=== PATIENT | male | born 1950 | race Caucasian/White ===

== ENCOUNTER 2017-01-04 08:34 | Inpatient (IN) ==
--- NOTE | 2017-01-03 21:17 | Discharge Summary ---
<Clover Mon Rudolph - Last Filed: 01/03/17 21:15> Date of Encounter: 01/03/17 - Discharge Diagnosis (1) Rotator cuff tear arthropathy of right shoulder Priority: Primary Status: Acute (2) Status post total replacement of right shoulder Priority: Primary Status: Acute - Discharge Medications Home Medications: OxyCODONE Immed Rel [Roxicodone 5 MG] 5 mg PO Q6HR PRN #28 tablet 01/03/17 [Rx] Tizanidine HCl 4 mg PO HS PRN 01/04/17 [History] Allergies/Adverse Reactions: 3 Allergy/AdvReac Type Severity Reaction Status Date / Time aspirin Allergy Hives Verified 01/04/17 09:19 Sulfa (Sulfonamide Allergy Hives Verified 01/04/17 09:19 Antibiotics) Primary care physician: Amy Crawford MD - Patient Status Disposition: Home, Self-Care Condition: Good - Discharge Instructions Follow Up With: Amy Crawford MD [Primary Care Provider] - - Hospital Course Hospital course: Mr. Juárez is a 66 year old male - Time Spent with Patient Total time spent providing and/or coordinating discharge services: <Jhonathan Garsiah - Last Filed: 01/04/17 13:44> Date of Encounter: 01/04/17 Time of Encounter: 13:44 - Discharge Diagnosis (1) Rotator cuff tear arthropathy of right shoulder Priority: Primary Status: Chronic (2) Status post total replacement of right shoulder Priority: Primary Status: Acute Primary care physician: Amy Crawford MD - Patient Status Functional capacity at discharge: independent ambulation Overall status at discharge: patient is progressing back to baseline - Hospital Course Hospital course: Mr. Juárez is a 66 year old male Status post right total shoulder replacement patient discharged home same day - Time Spent with Patient Total time spent providing and/or coordinating discharge services:
--- NOTE | 2017-01-04 08:51 | History & Physical Report ---
Date of Encounter: 01/04/17 Time of Encounter: 08:51 24 Hour HP Update - Instructions Instructions: If the History and Physical is less than 30 days old and was completed prior to A.M. admission and or procedure and has NOT been updated on calendar day of procedure please complete this update prior to performing procedure. - Update Patient reports changes in Medical Condition: No Changes in examination, assessment, or condition: No Changes in Medication: No Preop tests/diagnostics Reviewed: Yes - Pre-Operative Checklist Preoperative Checklist Indicated: No Prophylactic Antibiotic Ordered: Yes Is VTE Prophylaxis Indicated?: Yes
[2017-01-04] MEDS ORDERED: Lidocaine -MPF 1% 2 ML VIAL ID ONE (09:01)
[2017-01-04] MEDS ORDERED: CeFAZolin Pre 2,000 MG/100 ML 2,000 MG/100 ML BAG IVPB ONE (09:01)
[2017-01-04] MEDS ORDERED: Plasma-Lyte A (PH 7.4) 1,000 ML IVC SCH ×2 (09:15→11:15)
[2017-01-04] MEDS ORDERED: *HR* FentaNYL (PF) 100 MCG/2 ML VIAL ONE ×2 (09:33→10:01)
[2017-01-04] MEDS ORDERED: Lidocaine -MPF 2% 2 ML VIAL ONE ×2 (09:33→10:02)
[2017-01-04] MEDS ORDERED: ROPIVACAINE HCL/PF 0.5% 30 ML VIAL ONE (09:33)
[2017-01-04] MEDS ORDERED: *HR* Midazolam HCl 2 MG/2 ML VIAL ONE (09:34)
--- NOTE | 2017-01-04 09:36 | Anesthesia Evaluation PreOp ---
Date of Encounter: 01/04/17 Time of Encounter: 09:33 - Past History Planned Operation: Right Total Shoulder Pulmonary History: Denies Any Significant HX LIGHTER CAPTAIN History: Denies Any Significant HX Other Medical History: Denies Any Significant HX, Other (Gout) Anesthesia History: Past Anesthesia (Knee scopes x 3, Neck fusion, Lumbar spinal fusiion) Alcohol Use: occasionally Drug use: none Medications and Allergies OxyCODONE Immed Rel [Roxicodone 5 MG] 5 mg PO Q6HR PRN #28 tablet 01/03/17 [Rx] Tizanidine HCl 4 mg PO HS PRN 01/04/17 [History] 3 Allergy/AdvReac Type Severity Reaction Status Date / Time aspirin Allergy Hives Verified 01/04/17 09:19 Sulfa (Sulfonamide Allergy Hives Verified 01/04/17 09:19 Antibiotics) - Meds/Allergy Pre-op Review Medications Reviewed: Yes Allergies Reviewed: Yes Beta Blockers on Current Med List: No Anesthesia Results - Labs Laboratory Tests 12/18/16 12/18/16 12/18/16 17:37 17:37 17:37 WBC 9.4 Hgb 14.4 Hct 43.2 Plt Count 233 INR 1.0 Sodium 140 Potassium 4.3 Chloride 106 Carbon Dioxide 27 BUN 15 Creatinine 1.07 - Imaging EKG: image reviewed (SINUS RHYTHM WITH FIRST DEGREE AV BLOCK POSSIBLE LEFT ATRIAL ENLARGEMENT) Anesthesia Exam O2 Sat Height 1.78 m Height 1.78 m Weight 86.183 kg Weight 86.183 kg O2 Sat by Pulse Oximetry 99 O2 Sat by Pulse Oximetry 99 Vital Signs Temp Pulse Resp BP Pulse Ox 97.9 F 65 18 161/89 99 01/04/17 09:05 01/04/17 09:05 01/04/17 09:05 01/04/17 09:05 01/04/17 09:05 Height: 5'10'' Weight: 190# NPO (# of Hours): > 8 hrs Pain Scale: 0 Pain Scale Used: Numeric (1 - 10) - HEENT Pupil (Motor): Pupils equal, EOMI Mallampati: III Teeth: Normal Oral Opening: Greater than 3 - LIGHTER CAPTAIN LOC: Oriented LIGHTER CAPTAIN Motor: Normal RUE, Normal LUE, Normal RLE, Normal LLE, Normal Face LIGHTER CAPTAIN Sensory: Normal: RUE, LUE, RLE, LLE, Face - Cardiac Rhythm: Regular Murmur: None JVD: No Carotid Bruit: No - Pulmonary Breath Sounds: bilateral Clear Respiratory Effort: Symmetrical Anesthesia Assess/Plan ASA Score: 2 Modified Curt Scale for Level of Consciousness: Cooperative, oriented, and tranquil Anesthetic Plan: General, Regional (Right Brachial Plexus Block) Autologous Blood: Yes Monitoring Plan: Standard Monitors Recovery Plan: PACU
[2017-01-04] MEDS ORDERED: *HR* Propofol 200 MG/20 ML VIAL IVP ONE (10:01)
[2017-01-04] MEDS ORDERED: Lidocaine -MPF 4% 5 ML AMPUL ONE (10:02)
[2017-01-04] MEDS ORDERED: *HR* Succinylcholine 200 MG/10 ML VIAL IVP ONE (10:02)
[2017-01-04] MEDS ORDERED: EPHEDrine 50 MG/ML VIAL ONE (10:04)
--- NOTE | 2017-01-04 10:10 | Physician Discharge Referral ---
Home Health/Hosp Referral Info Transfer to: Home Health Attending Provider: Provider in Charge Post Discharge: PCP - Diagnosis (1) Rotator cuff tear arthropathy of right shoulder Priority: Primary Status: Chronic (2) Status post total replacement of right shoulder Priority: Primary Status: Acute - Respiratory Orders None Smoking Cessation: Smoking cessation has been advised. For more information, call the [employer] Tobacco Quit Line at 1-562-JTAC-NOW. - Dressing/Wound Care Type of Dressing/Treatments w/Frequency: Opsite placed. Keep dressing intact until first follow up appointment. If > 50% saturated,notify offfice, remove dressing and place appropriate dressing back in place. Dressing is water resistant, not water-proof. OK to shower, but do not get dressing wet. Prineo glue in place, to be removed at POD#14-21 - Diet/Nutrition Diet/Nutrition Orders: Regular - Activity Activity Orders: Up ad le, Ambulate - Services Needed Following services are medically necessary services: Nursing, Home Health Aide, Physical Therapy, Occupational Therapy Home Care Orders: PT/OT. NWB to affected upper extremity. Follow Shoulder Precautions x 6 weeks. Stay in brace during activity and at night. Remove brace during exercises. ICE and elevate extremity frequently throughout the day. Incentive Spirometer 10x/hour. - Transfer Medications Prescriptions: OxyCODONE Immed Rel [Roxicodone 5 MG] 5 mg PO Q6HR PRN #28 tablet PRN Reason: Pain Home Medications: OxyCODONE Immed Rel [Roxicodone 5 MG] 5 mg PO Q6HR PRN #28 tablet 01/03/17 [Rx] Tizanidine HCl 4 mg PO HS PRN 01/04/17 [History] Allergies/Adverse Reactions: 3 Allergy/AdvReac Type Severity Reaction Status Date / Time aspirin Allergy Hives Verified 01/04/17 09:19 Sulfa (Sulfonamide Allergy Hives Verified 01/04/17 09:19 Antibiotics) Certification: Further, I certify that my clinical findings support that this patient is homebound (i.e. absences from home require considerable and taxing effort and are for medical reasons or voodoo services or infrequently or short duration when for other reasons) because: Homebound Reason: Post-surgery restriction and or conditions limit ability to leave home Attestation: My signature below is to certify that this patient is under my care and that I, or nurse practitioner, or a physician's assistant construction superintendent working with me, has a face-to -face encounter with this patient.
--- NOTE | 2017-01-04 10:43 | Anesthesia Procedures ---
Date of Encounter: 01/04/17 Time of Encounter: 10:40 Procedures: Anesthesia - Nerve Block Procedure Date: 01/04/17 Time: 10:43 Allergies/Adv Reactions: sulfa, asa Pre-op Diagnosis: right shoulder RC arthropathy Surgical Procedure: right TSA Checklist: Correct Patient Identifier, Correct procedure, History checked Correct side: Right Blood Thinner: No Monitor Applied: EKG, BP, Pulse Oximetry Supplemental Oxygen via Nasal Cannula (L/min): 2 Sedation: Versed (mg): 2 Sedation: Fentanyl (mcg): 100 Indication: Post Op Analgesia Pre-op Neuro Deficits: No Block Type: Interscalene (25ml), Other (CP 5ml) Catheter placed: No Sterile Technique: Yes Ultrasound used: Yes Anatomy identified: Yes Visual spread of Local: Yes Neuro Stimulation: No Blood on Needle Aspiration: No Smooth Injection of Local: Yes Pain with Injection of Local: No Prep: Chlorhexadine Needle: 22 x 50 mm Stimuplex Local: Ropivacaine (0.5%), Other (decadron 8mg) Volume (cc): 30 Number of Attempts: 1 Complications: None/effective block Vitals: Vital Signs/O2 Sat/Glucose, Most Recent Temp Pulse Resp BP Pulse Ox 97.9 F 72 18 157/104 97 01/04/17 09:19 01/04/17 10:31 01/04/17 10:31 01/04/17 10:31 01/04/17 10:31
[2017-01-04] MEDS ORDERED: Ondansetron 4 MG/2 ML VIAL ONE (10:59)
[2017-01-04] MEDS ORDERED: Dexamethasone 4 MG/ML VIAL ONE (10:59)
[2017-01-04] MEDS ORDERED: *HR* Meperidine 25 MG/ML SYRINGE IVP PRN (11:09)
[2017-01-04] MEDS ORDERED: *HR* Labetalol 20 MG/4 ML SYRINGE IVP PRN (11:09)
[2017-01-04] MEDS ORDERED: Naloxone 0.4 MG/ML INJ IVP PRN ×2 (11:09→12:42)
[2017-01-04] MEDS ORDERED: *HR* HYDROmorphone (PF) 1 MG/ML SYRINGE IVP PRN ×2 (11:09→12:42)
[2017-01-04] MEDS ORDERED: Ondansetron 4 MG/2 ML VIAL IVP ONE (11:09)
[2017-01-04] MEDS ORDERED: Albuterol 2.5 MG/3 ML NEBULIZER IH ONE (11:09)
[2017-01-04] MEDS ORDERED: Ringers Solution, Lactated 1,000 ML IVC SCH ×2 (11:45→12:42)
[2017-01-04] MEDS ORDERED: Neostigmine Methylsulfate 3 MG/3 ML SYRINGE ONE (11:46)
--- NOTE | 2017-01-04 11:48 | Orthopedic Operative Note ---
Date of procedure: 01/04/17 Pre-op diagnosis: Right shoulder arthritis cuff tear arthropathy Post-op diagnosis: same Procedure: Procedure: Total Shoulder Replacment Reverse, right Estimated blood loss: 100 cc Hardware: Metal and polyethylene replacement: Arthrex large glenoid baseplate , 2 4.5 screws. 1 6.5 screw, 42+4 glenosphere, 9 humeral stem, poly insert 3 Exam Under anesthesia: Restricted motion in all planes Procedural Notes: Grade 4 arthritic changes humeral head glenoid socket irreparable tear supraspinatus tendon Operative procedure: The patient was brought to the operating room and placed on the operating room table. After general anesthesia was administered the operative shoulder was examined. Findings were noted. The patient was placed in the modified beachchair position. All pressure points were padded appropriately. And the head was stabilized in the neutral position. The operative extremity was prepped and draped in the sterile surgical fashion. The patient received IV antibiotics prior to skin incision. A standard deltopectoral approach was made to the operative shoulder. Incision was made to the skin and subcutaneous tissue,hemo stasis was obtained with Bovie cautery. Using careful blunt dissection the cephalic vein was identified and mobilized medially. The deltopectoral interval was developed and the clavipectoral fascia was incised. The subscap was released off the lesser tuberosity and tagged with #2 FiberWire suture subscap was irreparable. The humerus was dislocated patient noted to have irreparable tear supraspinatus tendon, and the humeral cut was made along the anatomic neck. Patient was grade 4 arthritic changes humeral head Anterior and posterior Bankart retractors were placed to expose the glenoid. Grade 4 arthritic changes glenoid socket The glenoid guide was seated and the centering hole was made. It was reamed with the appropriate reamer. The large baseplate was seated and secured with (2) 4.5 screws and one 6.5 screw. The baseplate was irrigated and dried and the 42+4 Glenosphere was seated and secured with the Spence taper. The Spence taper was tested and found to be secure the humerus was redislocated and prepared with the diaphyseal reamers, followed by a broaching process up to the appropriate size 9 in the patient's anatomic version. The metaphyseal reamer was then utilized. Trial reduction found the shoulder to be relocatable. Trial components were removed and The appropriate 9 stem was impacted in place in the patient's anatomic version. Trial reduction found the shoulder to be relocatable and stable with the appropriate 3 Trial component was removed and the real Anita was seated and secured the shoulder was reduced. The shoulder had excellent motion and excellent stability and no evidence of dislocation. The deep tissue was irrigated with pulse irrigation. The shoulder was closed by the PA. The deltopectoral interval was closed with a running #1 PDS suture, subcutaneous tissue was irrigated and closed with 0 PDS suture, the skin was closed with Dermabond. The patient was placed in a sterile dressing, abduction brace and extubated. The patient was then transferred to the recovery room in stable condition. Anesthesia: JOSE J Surgeon: Jhonathan Garsia Air Bag Builder: Erin Delacruz Condition: stable Disposition: PACU
--- NOTE | 2017-01-04 12:25 | Anesthesia Evaluation Post Op ---
Date of Encounter: 01/04/17 Time of Encounter: 12:24 - Vital Signs Vital Signs: Vital Signs/O2 Sat/Glucose, Most Recent Temp Pulse Resp BP Pulse Ox 97.5 F L 75 16 142/79 93 01/04/17 12:06 01/04/17 12:16 01/04/17 12:16 01/04/17 12:16 01/04/17 12:16 - Lungs Lungs: Clear Ascult./Percussion - Airway Airway: Non-obstructed - Cardiovascular Regular Rate - Mental Status Mental Status: Alert & Oriented, Answers Appropriately - Pain Pain Scale: 0 Pain Scale used: Numeric (1 - 10) - Nausea Vomiting Nausea Vomiting: Not Present - Hydration Hydration: Ice chips - Discharge PostOp Status: Transfer Patient to floor
[2017-01-04 12:33] LABS: Hematocrit 38.9 % (37.5-50.1); Hemoglobin 13.2 g/dL (12.9-16.9)
[2017-01-04] MEDS ORDERED: *HR* OxyCODONE Immed Rel 5 MG TABLET PO PRN ×2 (12:42)
[2017-01-04] MEDS ORDERED: Ondansetron 4 MG/2 ML VIAL IVP PRN (12:42)
[2017-01-04] MEDS ORDERED: MOM Conc 10 ML UD.LIQ PO PRN (12:42)
[2017-01-04] MEDS ORDERED: FLUARIX QUAD 2017-18 36MOS UP/PF 0.5 ML SYRINGE IM ONE (12:49)
[2017-01-04 14:48] VITALS: BP 117/83
[2017-01-04] MEDS ORDERED: *HR* Enoxaparin 30 MG/0.3 ML SYRINGE SQ ONE (15:45)
[2017-01-04] MEDS: *HR* Enoxaparin 30 MG/0.3 ML SYRINGE IVP ONE ×2 (15:47→16:02)
[2017-01-04] MEDS ORDERED: ceFAZolin 2,000 MG in D5% in Water 100 ML IVPB SCH (16:00)
[2017-01-04] MEDS ORDERED: *HR* Enoxaparin 30 MG/0.3 ML SYRINGE SQ SCH ×2 (18:00)
[2017-01-04] MEDS ORDERED: Sennosides 8.6 MG TABLET PO PRN (21:00)
[2017-01-04] MEDS ORDERED: tiZANidine 4 MG TABLET PO PRN (21:00)
[2017-01-04] MEDS ORDERED: Temazepam 15 MG CAPSULE PO PRN (21:00)
== END 2017-01-04 17:05 | disposition home or self-care (01) | DRG 483 ==
LOC: SAMDAY 08:34 → 3NENU 12:42
PROVIDERS: ADMIT Orthopaedic Surgery; ATTEND Orthopaedic Surgery